=== PATIENT | male | born 1980 | race Caucasian/White ===

== ENCOUNTER 2016-11-25 08:44 | Outpatient (CLI) | payer OTHER | END 2016-11-25 18:21 | disposition home or self-care (01) | LOC: SMI 08:44 | PROVIDERS: ATTEND Surgery | DX: R59.0 Localized enlarged lymph nodes (principal) | CPT/HCPCS: 72195 ==

== ENCOUNTER 2017-05-16 11:02 | Day surgery (SDC) | payer OTHER ==
[2017-05-12 14:11] LABS: EOSINOPHILS % (AUTO) 0.4 % (0.0-4.0); HEMATOCRIT 45.1 % (36-54); MEAN CORPUSCULAR HEMOGLOBIN 29 pg (27-31); MONOCYTES # (AUTO) 0.5 K/uL (0.0-1.0)
[2017-05-12 14:25] LABS: BASOPHILS % (AUTO) 0.4 % (0.0-2.0); HEMOGLOBIN 14.6 g/dL (14.0-18.0); LYMPHOCYTES # (AUTO) 1.7 K/uL (1.0-5.5); LYMPHOCYTES % (AUTO) 23.3 % (20.5-51.5); MEAN CORPUSCULAR HGB CONC 33 % (32-36); MEAN CORPUSCULAR VOLUME 91 fL (79.0-98.0); MONOCYTES % (AUTO) 7.3 % (1.7-9.3); NEUTROPHILS % (AUTO) 68.6 % (40.0-70.0); PLATELET COUNT (AUTO) 208 K/uL (130-430); RED BLOOD CELL COUNT(AUTO) 4.98 MIL/uL (4.2-6.2); RED CELL DISTRIBUTION WIDTH 12.1 % (9.0-15.0); WHITE BLOOD COUNT (AUTO) 7.2 K/uL (4.8-10.8)
[2017-05-12 14:42] LABS: ALBUMIN 4.5 g/dL (3.4-4.8); CALCIUM 9.4 mg/dL (8.4-11.0); CREATININE 0.79 mg/dL (0.55-1.30); POTASSIUM 3.8 mmol/L (3.5-5.1); TOTAL BILIRUBIN 0.7 mg/dL (0.0-1.0)
[2017-05-12 14:44] LABS: PROTHROMBIN TIME 10.5 SECS (9.5-12.5)
[~2017-05-16] VITALS: Ht 182.9 cm; Wt 66.7 kg
[2017-05-16] MEDS ORDERED: POLYMYXIN 500,000/BACIT.10,000 UNITS in NS IRR 1 L IR ONE (13:44)
[2017-05-16] MEDS ORDERED: BUPIVACAINE LIPOSOME/PF 266 MG/20 ML VIAL INFIL ONE (14:30)
[2017-05-16] MEDS ORDERED: LR 1,000 ML IV SCH (14:56)
[2017-05-16] MEDS ORDERED: MORPHINE 4 MG/ML INJ. SYRINGE IVP PRN ×3 (15:00)
[2017-05-16] MEDS ORDERED: METOCLOPRAMIDE HCL 10 MG/2 ML VIAL IVP PRN (15:00)
[2017-05-16] MEDS ORDERED: D5/0.45 NS 1,000 ML IV SCH (15:36)
[2017-05-16] MEDS ORDERED: HYDROmorphone 1 MG INJ. 1 MG/ML AMPUL IVP PRN (15:45)
[2017-05-16] MEDS ORDERED: ACETAMINOPHEN 325 MG TABLET PO PRN (15:45)
[2017-05-16] MEDS ORDERED: HYDROcodone/ACETAMIN 5-325 MG TAB (NORCO/ VICODIN) PO PRN (15:45)
[2017-05-16] MEDS ORDERED: ONDANSETRON HCL 4 MG/2 ML VIAL IVP PRN (15:45)
[2017-05-16] MEDS: MORPHINE 4 MG/ML INJ. SYRINGE ONE (15:45)
[2017-05-16] MEDS: HYDROmorphone 2 MG/ML VIAL ONE (16:05)
[2017-05-16] MEDS ORDERED: HYDROmorphone 2 MG/ML VIAL IVP ONE (16:15)
[2017-05-16] MEDS: HYDROcodone/ACETAMIN 5-325 MG TAB (NORCO/ VICODIN) ONE (17:00)
[2017-05-16 17:26] VITALS: BP_SYST 127
== END 2017-05-16 18:40 | disposition home or self-care (01) ==
LOC: SDS 11:02 → SMU 11:04 → SDS 18:40
PROVIDERS: ATTEND Surgery
DX: K40.91 Unilateral inguinal hernia, without obstruction or gangrene, recurrent (principal); I20.9 Angina pectoris, unspecified; I50.9 Heart failure, unspecified
CPT/HCPCS: 36415; 49520; 80053; 85025; 85610; 85730; 88302; C9290; J1170; J2270; Q4116

== ENCOUNTER 2017-05-22 21:57 | Emergency (ER) | payer OTHER ==
[~2017-05-22] VITALS: Ht 185.4 cm; Wt 66.7 kg
[2017-05-22 21:57] VITALS: BP_SYST 140
[2017-05-23 01:07] VITALS: BP_SYST 143
== END 2017-05-23 01:07 | disposition home or self-care (01) ==
LOC: SED 21:57
DX: G89.18 Other acute postprocedural pain (principal)
CPT/HCPCS: 99284